=== PATIENT | female | born 1965 | race Caucasian/White ===

== ENCOUNTER 2024-09-17 17:07 | Emergency (ER) | payer OTHER, SELFPAY ==
[2024-09-17 17:21] VITALS: BP 160/72; PULSE 100; TEMP 36.7; O2SAT 99; BMI 24.0
[2024-09-17 17:23] VITALS: BP 160/72
--- NOTE | 2024-09-17 17:28 | ECG_ITS ---
[facility] Test Date: 2024-09-17 Pat Name: RED PETER Department: Room: - Gender: Female Senior Counsel: : 1965 Requested By: TIMOTHY MCKENZIE Order Number: [id number] Reading MD: TIMOTHY MCKENZIE Measurements Intervals [place] Rate: 85 P: 46 [place]: 140 QRS: 62 QRSD: 84 T: 50 QT: 344 QTc: 386 Interpretive Statements 1100 Sinus rhythm 9110 normal ECG No previous ECG available for comparison Electronically Signed On 09-22-2024 6:51:37 EST by TIMOTHY MCKENZIE
[2024-09-17 17:41] LABS: Basophils Absolute Auto 0.1 10^3/uL (0.0-0.1); Basophils Percent Auto 0.8 % (0.2-2.0); Eosinophils Absolute Auto 0.1 10^3/uL (0.0-0.7); Eosinophils Percent Auto 1.7 % (0.9-7.0); Hematocrit 39.9 % (36.0-48.0); Hemoglobin 13.3 g/dL (12.0-16.0); Immature Granulocytes Abs Auto 0.02 10^3/uL (0.00-0.03); Immature Granulocytes Pct Auto 0.3 % (0.0-0.5); Lymphocytes Absolute Auto 2.3 10^3/uL (1.2-3.8); Lymphocytes Percent Auto 29.6 % (20.5-60.0); Mean Corpuscular HGB Conc 33.3 g/dL (29.9-35.2); Mean Corpuscular Hemoglobin 29.8 pg (26.7-34.0); Mean Corpuscular Volume 89.3 fL (81.0-99.0); Mean Platelet Volume 9.5 fL (9.5-13.5); Monocytes Absolute Auto 0.5 10^3/uL (0.3-0.8); Monocytes Percent Auto 6.4 % (1.7-12.0); Neutrophils Absolute Auto 4.8 10^3/uL (1.4-6.5); Neutrophils Percent Auto 61.2 % (43.0-75.0); Platelet Count 400 10^3/uL (150-450); Red Blood Count 4.47 10^6/uL (4.20-5.40); Red Cell Distribution Width 12.1 % (11.0-15.0); White Blood Count 7.9 10^3/uL (4.0-11.0)
[2024-09-17 18:00] LABS: Alanine Aminotransferase 13 U/L (14-59); Albumin Globulin Ratio 0.9; Albumin Level 3.8 g/dL (3.4-5.0); Alkaline Phosphatase 99 U/L (46-116); Anion Gap 11.7; Aspartate Amino Transferase 14 U/L (15-37); BUN Creatinine Ratio 18.8; Bilirubin Total 0.6 mg/dL (0.2-1.0); Calcium 9.1 mg/dL (8.5-10.1); Carbon Dioxide 28.9 mmol/L (21.0-32.0); Chloride 103 mmol/L (98-107); Estimated GFR (African America >60 (>=60 mL/min/1.73m^2); Estimated GFR (Non-African Ame >60 (>=60 mL/min/1.73m^2); Globulin 4.1 g/dL; Glucose 140 mg/dL (74-106); Magnesium 2.1 mg/dL (1.8-2.4); Potassium 3.6 mmol/L (3.5-5.1); Sodium 140 mmol/L (136-145); Total Protein 7.9 g/dL (6.4-8.2); Troponin I High Sensitivity <4.0 pg/mL (4.0-51.3)
--- NOTE | 2024-09-17 18:02 | ED.ARRPALP1 ---
HPI - Arrhythmia/Palpitations General Chief Complaint: Arrhythmia/Palpitations Stated Complaint: RAPID HEART RATE Time Seen by Provider: 09/17/24 17:28 Source: patient Mode of arrival: walk-in Limitations: no limitations History of Present Illness HPI narrative: The patient is coming to us with almost few days history of feeling palpitation and heart racing. This all started Saturday which is few days ago when she was going to sleep but she did feel some numbness and tingling in her left hand but she went to sleep and woke up with no numbness and tingling or any palpitation then. The patient noticed on her Apple Watch that she been having those palpitation very frequent over the last few days There was no associated nausea vomiting chest pain or any other concern there was no difficulty breathing and no other concern raised by the patient The patient did show me her reading on her iWatch that showed sometimes a reading of 140 heart rate that was recorded 1 time today and yesterday she had a maximum of 120 that also recorded 1 time Related Data Home Medications ?Medication ?Instructions ?Recorded ?Confirmed thyroid (pork) 90 mg tablet ([employer] mg 09/17/24 Thyroid) Allergies Allergy/AdvReac Type Severity Reaction Status Date / Time No Known Drug Allergies Allergy Verified 09/17/24 17:26 Review of Systems ROS Status of ROS 10 or more systems reviewed and unremarkable except as noted in history and below PFSH PFSH Social History Little interest or pleasure in doing things: not at all Feeling down, depressed, or hopeless: not at all Exam Narrative Exam Narrative: Nurses notes and vital signs reviewed and patient is not hypoxic. General: Well-appearing and in no apparent distress. Skin: Warm, dry, no pallor noted. No rash. Head: Normocephalic, atraumatic. Neck: Supple, non-tender. Eye: Pupils are equal, round and EOMI. No scleral icterus. Ears, Nose, Mouth, and Throat: TM are clear, no nasal mucosal hypertrophy. Oral mucosa is moist, no posterior oropharynx erythema, uvula is mid-line Cardiovascular: Regular Rate and Rhythm without murmur, gallop or rub. Respiratory: No accessory muscle use or respiratory distress. Lungs are clear to auscultation, no wheezing, rales or rhonchi Chest Wall: no tenderness Back: No midline thoracic or lumbar vertebral tenderness. No CVA tenderness Musculoskeletal: normal ROM, no calf or popliteal tenderness, no lower extremity edema/swelling GI: Abdomen is soft, non-distended. Normal bowel sounds. No masses appreciated. No tenderness to palpation. No rebound, guarding, or rigidity noted. Neurological: A&O x4. No cranial nerve dysfunction observed. No truncal ataxia. Moves all extremities. Sensation intact. Psychiatric: Cooperative and interactive. Normal mood and affect. Constitutional Vital Signs, click to edit/add: Last Vital Signs Temp 98.0 F 09/17/24 17:21 Pulse 100 H 09/17/24 17:21 Resp 16 09/17/24 17:21 BP 160/72 H 09/17/24 17:21 Pulse Ox 99 09/17/24 17:21 O2 Del Method Room Air 09/17/24 17:21 Course Vital Signs Vital signs: Vital Signs Temperature 98.0 F 09/17/24 17:21 Pulse Rate 100 H 09/17/24 17:21 Respiratory Rate 16 09/17/24 17:21 Blood Pressure 160/72 H 09/17/24 17:21 Pulse Oximetry 99 09/17/24 17:21 Oxygen Delivery Method Room Air 09/17/24 17:21 Temperature 98.0 F 09/17/24 17:21 Pulse Rate 100 H 09/17/24 17:21 Respiratory Rate 16 09/17/24 17:21 Blood Pressure 160/72 H 09/17/24 17:21 Pulse Oximetry 99 09/17/24 17:21 Oxygen Delivery Method Room Air 09/17/24 17:21 MDM - Arrhythmia/Palpitations MDM Narrative Medical decision making narrative: The patient EKG showing sinus rhythm with a heart rate of [address] elevation or depression The patient TSH is pending otherwise the CBC and chemistry are negative for any acute pathology Troponin is negative Lab Data Labs: Lab Results 09/17/24 Range/Units 17:30 WBC 7.9 (4.0-11.0) 10^3/uL RBC 4.47 (4.20-5.40) 10^6/uL Hgb 13.3 (12.0-16.0) g/dL Hct 39.9 (36.0-48.0) % MCV 89.3 (81.0-99.0) fL MCH 29.8 (26.7-34.0) pg MCHC 33.3 (29.9-35.2) g/dL RDW 12.1 (11.0-15.0) % Plt Count 400 (150-450) 10^3/uL MPV 9.5 (9.5-13.5) fL Neut % (Auto) 61.2 (43.0-75.0) % Lymph % (Auto) 29.6 (20.5-60.0) % [place] % (Auto) 6.4 (1.7-12.0) % Eos % (Auto) 1.7 (0.9-7.0) % Baso % (Auto) 0.8 (0.2-2.0) % Neut # (Auto) 4.8 (1.4-6.5) 10^3/uL Lymph # (Auto) 2.3 (1.2-3.8) 10^3/uL [place] # (Auto) 0.5 (0.3-0.8) 10^3/uL Eos # (Auto) 0.1 (0.0-0.7) 10^3/uL Baso # (Auto) 0.1 (0.0-0.1) 10^3/uL Abs Immat Gran (auto) 0.02 (0.00-0.03) 10^3/uL Imm/Tot Granulo (auto) 0.3 (0.0-0.5) % Sodium 140 (136-145) mmol/L Potassium 3.6 (3.5-5.1) mmol/L Chloride 103 (98-107) mmol/L Carbon Dioxide 28.9 (21.0-32.0) mmol/L Anion Gap 11.7 BUN 16.0 (7.0-18.0) mg/dL Creatinine 0.85 (0.55-1.02) mg/dL Est GFR ( Amer) >60 (>=60 mL/min/1.73m^2) Est GFR (Non-Af Amer) >60 (>=60 mL/min/1.73m^2) BUN/Creatinine Ratio 18.8 Glucose 140 H (74-106) mg/dL Calcium 9.1 (8.5-10.1) mg/dL Magnesium 2.1 (1.8-2.4) mg/dL Total Bilirubin 0.6 (0.2-1.0) mg/dL AST 14 L (15-37) U/L ALT 13 L (14-59) U/L Alkaline Phosphatase 99 (46-116) U/L Troponin I High Sens <4.0 L (4.0-51.3) pg/mL Total Protein 7.9 (6.4-8.2) g/dL Albumin 3.8 (3.4-5.0) g/dL Globulin 4.1 g/dL Albumin/Globulin Ratio 0.9 Discharge Plan Discharge Chief Complaint: Arrhythmia/Palpitations Clinical Impression: Palpitations Patient Disposition: Home, Self-Care Time of Disposition Decision: 18:31 Prescriptions / Home Meds: No Action thyroid (pork) [[employer] Thyroid] 90 mg tablet Print Language: Romansh Instructions: Heart Palpitations (DC) Referrals: SONU HUNTER [Primary Care Provider] - 1 week
[2024-09-17 18:33] VITALS: BP 120/80
[2024-09-17 18:34] VITALS: BP 126/75
[2024-09-17 18:57] LABS: Thyroid Stimulating Hormone 0.933 uIU/mL (0.358-3.740)
[2024-09-17 19:04] LABS: INR 1.08; Prothrombin Time 11.4 sec (9.0-11.6)
== END 2024-09-17 19:50 | disposition home or self-care (01) ==
PROVIDERS: Emergency Medicine; Emergency Provider Emergency Medicine; PCP Family Medicine
DX: R00.2 Palpitations (principal); Z63.79 Other stressful life events affecting family and household
CPT/HCPCS: 36415; 80053; 83735; 84443; 84484; 85025; 85610; 93005; 99285